=== PATIENT | male | born 1985 | race Caucasian/White ===

== ENCOUNTER 2018-01-07 09:54 | Emergency (ER) | payer BC ==
[2018-01-07] MEDS ORDERED: IBUPROFEN 400 MG TABLET PO ONE (10:10)
--- NOTE | 2018-01-07 10:11 | Emergency Department Record ---
History of Present Illness - General Chief complaint: ENT Stated complaint: SORE THROAT Time Seen by Provider: 01/07/18 10:01 Source: Patient Mode of Arrival: Ambulatory Limitations: No limitations - History of Present Illness Initial comments: 32 yo male presents to ED for evaluation of sore throat and fever symptoms for the past 2 days. Patient reports body aches, headache, denies cough, nausea, or vomiting. Patient denies health problems at his baseline, denies taking anything at home for his symptoms prior to arrival. MD complaint: Sore throat Onset/Timin -: Days(s) Location: R ear, L ear, Throat Severity: Moderate Quality: Aching Consistency: Constant Improves with: None Worsens with: None Associated Symptoms: Fever, Sore throat - Related Data Previous Rx's Medication Instructions Recorded Amoxicillin [Amoxil] 875 mg PO BID #19 tab 01/07/18 Allergies Allergy/AdvReac Type Severity Reaction Status Date / Time No Known Drug Allergies Allergy Verified 01/07/18 10:01 Travel Screening - Travel/Exposure Within Last 30 Days Have you traveled within the last 30 days?: No Review of Systems Constitutional: Reports: Chills, Fever, Malaise, Weakness. Denies: Night sweats Eyes: Denies: Eye discharge, Eye pain ENT: Reports: Congestion, Ear pain, Throat pain. Denies: Epistaxis Respiratory: Denies: Cough, Dyspnea Cardiovascular: Denies: Chest pain, Dyspnea on exertion Endocrine: Reports: Fatigue. Denies: Heat or cold intolerance Gastrointestinal: Denies: Abdominal pain, Nausea, Vomiting Genitourinary: Denies: Incontinence, Retention Musculoskeletal: Denies: Arthralgia, Back pain, Gout, Joint swelling Skin: Denies: Bruising, Change in color Neurological: Denies: Abnormal gait, Confusion, Headache, Seizure Psychiatric: Denies: Anxiety Hematological/Lymphatic: Denies: Anemia, Blood Clots Past Medical History - SOCIAL HISTORY Smoking Status: Never smoker Alcohol Use: None Drug Use: None - RESPIRATORY Hx Respiratory Disorders: No - CARDIOVASCULAR Hx Cardio Disorders: No - NEURO Hx Neuro Disorders: No - GI Hx GI Disorders: No - Hx Genitourinary Disorders: No - ENDOCRINE Hx Endocrine Disorders: No - MUSCULOSKELETAL Hx Musculoskeletal Disorders: No - PSYCH Hx Psych Problems: No - HEMATOLOGY/ONCOLOGY Hx Hematology/Oncology Disorders: No Family Medical History Any Significant Family History?: No Physical Exam - General General Appearance: Alert, Oriented x3, Cooperative, Moderate distress Limitations: No limitations - Head Head exam: Atraumatic, Normocephalic, Normal inspection Head exam detail: negative: Abrasion, Contusion, Lee's sign, General tenderness, Hematoma, Laceration - Eye Eye exam: Normal appearance. negative: Conjunctival injection, Periorbital swelling, Periorbital tenderness, Scleral icterus - ENT ENT exam: TM's normal bilaterally Ear exam: negative: Auricular hematoma, Auricular trauma, External canal tenderness Nasal Exam: negative: Active bleeding, Discharge, Dried blood, Foreign body Mouth exam: negative: Drooling, Laceration, Muffled voice, Tongue elevation Throat exam: Tonsillar erythema. negative: Tonsillomegaly, R peritonsillar mass , L peritonsillar mass - Neck Neck exam: Normal inspection. negative: Meningismus, Tenderness - Respiratory Respiratory exam: Normal lung sounds bilaterally. negative: Rales, Respiratory distress, Rhonchi, Stridor - Cardiovascular Cardiovascular Exam: Regular rate, Normal rhythm, Normal heart sounds - GI/Abdominal GI/Abdominal exam: Soft. negative: Rebound, Rigid, Tenderness - Rectal Rectal exam: Deferred - exam: Deferred - Extremities Extremities exam: Normal inspection. negative: Pedal edema, Tenderness - Back Back exam: Denies: CVA tenderness (R), CVA tenderness (L) - Neurological Neurological exam: Alert, Normal gait, Oriented X3 - Psychiatric Psychiatric exam: Normal affect, Normal mood - Skin Skin exam: Normal color. negative: Abrasion Type of lesion: negative: abrasion Course Vital Signs 01/07/18 09:58 Temperature 100.2 F H Pulse Rate 109 H Respiratory 18 Rate Blood Pressure 126/78 Pulse Ox 97 - Reevaluation(s) Reevaluation #1: 01/07/18 10:25 Strep: Positive Influenza: Negative Patient was updated on his strep result, appears stable for discharge on amoxicillin as directed. Disposition Disposition: Discharge Clinical Impression: Pharyngitis Qualifiers: Pharyngitis/tonsillitis etiology: streptococcus Qualified Code(s): J02.0 - Streptococcal pharyngitis Disposition: Home, Self-Care Condition: (2) Stable Instructions: Pharyngitis (ED) Additional Instructions: Return to ED if your symptoms worsen or if you have any concerns. Amoxicillin as directed. Follow-up with your family doctor in 3-5 days as directed. Prescriptions: Amoxicillin [Amoxil] 875 mg PO BID #19 tab Forms: Patient Portal Access Time of Disposition: 10:27 Quality - Quality Measures Quality Measures: N/A - Blood Pressure Screening Does Patient Have Any of the Following: No Blood Pressure Classification: Pre-Hypertensive BP Reading Systolic Measurement: 126 Diastolic Measurement: 78 Screening for High Blood Pressure: < Pre-Hypertensive BP, F/U Documented > [ [id number]] Pre-Hypertensive Follow-up Interventions: Referral to alternative/primary care provider.
[2018-01-07 10:19] LABS: INFLUENZA A NEGATIVE (NEGATIVE); INFLUENZA B NEGATIVE (NEGATIVE)
[2018-01-07] MEDS ORDERED: AMOXICILLIN 400 MG/5 ML ML PO ONE (10:28)
== END 2018-01-07 10:39 | disposition home or self-care (01) ==
LOC: ER 09:54
DX: J02.0 Streptococcal pharyngitis (principal)
CPT/HCPCS: 87400; 87880; 99282